=== PATIENT | male | born 1930 | race Caucasian/White ===

== ENCOUNTER 2016-12-25 16:05 | Inpatient (IN) | payer MEDICARE, BC, MEDICAID ==
[~2016-12-25] VITALS: Ht 170.2 cm; Wt 92.5 kg
[~2016-12-25 16:05] MED LIST: ALAVERT10 M1 PO; ALLEGRA 180MG180 MG PO; ASPIRIN 32325 MG/TAB PO; CARDIZEM CD 24240 MG PO; FLOMAX 0.40.4 MG/CAP PO; HYTRIN10 MG PO; LIPITOR 80MG80 MG PO; LOPRESSOR 550 MG/TAB PO; NITROSTAT0.4 MG/TAB SL; PLAVIX 75MG TAB75 MG PO; PRILOSEC 20MG20 MG PO; PRINIVIL20 MG PO; PROTONIX20 MG PO; TYLENOL EXTRA500 M1 PO
[2016-12-25 16:49] LABS: INR 1.4 (0.8-3.0); PROTHROMBIN TIME 15.1 SECONDS (9.7-12.8)
[2016-12-25 16:54] LABS: ADJUSTED CALCIUM 9.5 mg/dL (8.4-10.2); ALANINE AMINOTRANSFERASE 52 U/L (21-72); ALKALINE PHOSPHATASE 90 U/L (50-136); ANION GAP 11 mmol/L (7-16); BILIRUBIN,TOTAL 1.3 mg/dL (0.0-1.0); BLOOD UREA NITROGEN 26 mg/dL (9-20); CALCIUM 8.7 mg/dL (8.4-10.2); CARBON DIOXIDE 26 mmol/L (22-30); CHLORIDE 101 mmol/L (98-107); CREATININE, serum 1.13 mg/dL (0.66-1.25); GLUCOSE 107 mg/dL (74-106); SODIUM 137 mmol/L (137-145); TOTAL PROTEIN 5.9 gm/dL (6.4-8.2)
[2016-12-25] MEDS ORDERED: ASPIRIN 81M81 MG/TA2 PO (17:01)
[2016-12-25 17:02] LABS: B-TYPE NATRIURETIC PEPTIDE 462 pg/mL (0-450)
[2016-12-25] MEDS ORDERED: MELATONIN5 M1 SL (17:03)
[2016-12-25] MEDS ORDERED: CELEXA 20MG20 MG/TAB PO (17:03)
[2016-12-25] MEDS ORDERED: ZANTAC 150150 MG PO (17:04)
[2016-12-25] MEDS ORDERED: COLACE 100100 MG/CAP PO (17:04)
[2016-12-25] MEDS ORDERED: IMODIUM 2MG CAPS2 MG PO (17:05)
[2016-12-25] MEDS ORDERED: ZOCOR 40MG40 MG PO (17:06)
[2016-12-25] MEDS ORDERED: PLAVIX 75MG TAB75 MG PO (17:07)
[2016-12-25 17:08] LABS: MEAN CELL VOLUME 95 fl (80.0-100.0); MEAN CORPUSCULAR HGB CONC 35 g/dl (33.0-37.0); MEAN PLATELET VOLUME 10.4 fl (7.4-10.4); PLATELET COUNT 107 K/mm3 (130-400); RED BLOOD COUNT 3.12 M/mm3 (4.20-5.60); REDCELL DISTRIBUTION WIDTH-CV 16.9 % (11.5-14.5)
[2016-12-25] MEDS ORDERED: TYLENOL SU650 MG/SUP RC (17:08)
[2016-12-25] MEDS ORDERED: TYLENOL 325MG325 MG PO (17:08)
[2016-12-25] MEDS ORDERED: GENTLE LAXATIVE10 MG RC (17:09)
[2016-12-25 17:12] LABS: TROPONIN-I < 0.012 ng/mL (0.000-0.034)
[2016-12-25 17:14] LABS: ADD PATHOLOGY DIFF REVIEW NO; HEMATOCRIT 29.6 % (42.0-52.0); HEMOGLOBIN 10.3 g/dl (13.5-18.0); MEAN CORPUSCULAR HEMOGLOBIN 33 pg (27.0-31.0)
[2016-12-25 17:21] LABS: BAND 6 % (0-10); BASOPHIL 1 % (0-2); EOSINOPHIL 2 % (0-4); NEUTROPHILS 55 % (42.0-75.2); TOTAL CELLS COUNTED 100
[2016-12-25 17:22] LABS: HYPOCHROMIA 1+; MICROCYTOSIS 1+; POLYCHROMASIA 2+
[2016-12-25 18:52] LABS: INFLUENZA B NEGATIVE
[2016-12-25 21:31] VITALS: BP 114/51; PULSE 95; TEMP 97.8
[2016-12-26 02:51] VITALS: BP 129/59; PULSE 103; TEMP 98.4
[2016-12-26 08:17] VITALS: BP 126/64; PULSE 114; TEMP 97.7
[2016-12-26 12:10] VITALS: BP 115/41; PULSE 89; TEMP 97.8
[2016-12-26 16:19] VITALS: BP 136/63; PULSE 100; TEMP 97.9
[2016-12-26 19:55] VITALS: BP 146/55; PULSE 115; TEMP 98.7
[2016-12-27 07:55] VITALS: BP 143/57; PULSE 98; TEMP 98.2
[2016-12-27 08:05] LABS: CALCIUM 8.5 mg/dL (8.4-10.2); CREATININE, serum 1.06 mg/dL (0.66-1.25); POTASSIUM 3.6 mmol/L (3.4-5.0)
[2016-12-27 09:19] LABS: HEMATOCRIT 39.3 % (42.0-52.0); MEAN CELL VOLUME 97 fl (80.0-100.0); MEAN CORPUSCULAR HGB CONC 36 g/dl (33.0-37.0); MEAN PLATELET VOLUME 10.1 fl (7.4-10.4); RED BLOOD COUNT 4.04 M/mm3 (4.20-5.60); REDCELL DISTRIBUTION WIDTH-CV 19.9 % (11.5-14.5); WHITE BLOOD COUNT 3.7 K/mm3 (4.8-10.8)
[2016-12-27 09:20] LABS: HEMOGLOBIN 14.3 g/dl (13.5-18.0); MEAN CORPUSCULAR HEMOGLOBIN 35 pg (27.0-31.0); PLATELET COUNT 91 K/mm3 (130-400)
[2016-12-27 09:21] LABS: ADD PATHOLOGY DIFF REVIEW NO
[2016-12-27 10:10] LABS: BAND 12 % (0-10); BASOPHIL 2 % (0-2); EOSINOPHIL 1 % (0-4); METAMYELOCYTE 2 % (0-0); MYELOCYTE 1 % (0-0); NEUTROPHILS 51 % (42.0-75.2); TOTAL CELLS COUNTED 100
[2016-12-27 11:46] VITALS: BP 122/48; PULSE 80; TEMP 98
[2016-12-27 15:46] VITALS: BP 134/65; PULSE 86; TEMP 97.9
[2016-12-27 20:58] VITALS: BP 152/93; PULSE 105; TEMP 98
[2016-12-28] VITALS (8 sets, daily range): BP systolic 112–150; BP diastolic 50–72; PULSE 68–95; TEMP 97.6–98.9
[2016-12-28 07:28] LABS: CALCIUM 8.6 mg/dL (8.4-10.2); CREATININE, serum 0.92 mg/dL (0.66-1.25); POTASSIUM 3.3 mmol/L (3.4-5.0)
[2016-12-28 08:08] LABS: MEAN CORPUSCULAR HGB CONC 32 g/dl (33.0-37.0); MEAN PLATELET VOLUME 9.8 fl (7.4-10.4); PLATELET COUNT 85 K/mm3 (130-400); RED BLOOD COUNT 3.07 M/mm3 (4.20-5.60); REDCELL DISTRIBUTION WIDTH-CV 16.5 % (11.5-14.5); WHITE BLOOD COUNT 5.6 K/mm3 (4.8-10.8)
[2016-12-28 08:12] LABS: HEMATOCRIT 28.3 % (42.0-52.0); MEAN CELL VOLUME 92 fl (80.0-100.0); MEAN CORPUSCULAR HEMOGLOBIN 29 pg (27.0-31.0)
[2016-12-28 08:44] LABS: MEAN CELL VOLUME 93 fl (80.0-100.0); MEAN CORPUSCULAR HGB CONC 32 g/dl (33.0-37.0); MEAN PLATELET VOLUME 10.4 fl (7.4-10.4); PLATELET COUNT 88 K/mm3 (130-400); RED BLOOD COUNT 3.17 M/mm3 (4.20-5.60); REDCELL DISTRIBUTION WIDTH-CV 16.3 % (11.5-14.5); WHITE BLOOD COUNT 5.6 K/mm3 (4.8-10.8)
[2016-12-28 08:45] LABS: HEMATOCRIT 29.6 % (42.0-52.0); MEAN CORPUSCULAR HEMOGLOBIN 30 pg (27.0-31.0)
[2016-12-28 08:46] LABS: HEMOGLOBIN 9.4 g/dl (13.5-18.0)
[2016-12-28 08:47] LABS: ADD PATHOLOGY DIFF REVIEW NO
[2016-12-28 12:20] LABS: BAND 10 % (0-10); EOSINOPHIL 1 % (0-4); METAMYELOCYTE 1 % (0-0); NEUTROPHILS 52 % (42.0-75.2); PLATELET ESTIMATE DECREASED (NORMAL); TOTAL CELLS COUNTED 100
[2016-12-28 12:27] LABS: ANISOCYTOSIS 1+
[2016-12-28 12:28] LABS: POLYCHROMASIA 2+
[2016-12-28 12:29] LABS: BURR CELLS 1+
[2016-12-29] VITALS (8 sets, daily range): BP systolic 108–153; BP diastolic 40–69; PULSE 105–118; TEMP 97.4–99.2
[2016-12-29 07:31] LABS: MEAN CORPUSCULAR HGB CONC 44 g/dl (33.0-37.0); MEAN PLATELET VOLUME 10.6 fl (7.4-10.4); PLATELET COUNT 84 K/mm3 (130-400); REDCELL DISTRIBUTION WIDTH-CV 19.5 % (11.5-14.5); WHITE BLOOD COUNT 4.8 K/mm3 (4.8-10.8)
[2016-12-29 07:38] LABS: ADD PATHOLOGY DIFF REVIEW NO; HEMATOCRIT 19.2 % (42.0-52.0); HEMOGLOBIN 8.5 g/dl (13.5-18.0); MEAN CELL VOLUME 101 fl (80.0-100.0); MEAN CORPUSCULAR HEMOGLOBIN 45 pg (27.0-31.0)
[2016-12-29 07:39] LABS: CALCIUM 8.6 mg/dL (8.4-10.2); CREATININE, serum 1.02 mg/dL (0.66-1.25)
[2016-12-29 07:54] LABS: URIC ACID 4.7 mg/dL (3.5-8.5)
[2016-12-29 08:53] LABS: BAND 20 % (0-10); EOSINOPHIL 2 % (0-4); METAMYELOCYTE 4 % (0-0); NEUTROPHILS 40 % (42.0-75.2); TOTAL CELLS COUNTED 100
[2016-12-29 08:55] LABS: PLATELET ESTIMATE DECREASED (NORMAL)
[2016-12-29 08:56] LABS: ANISOCYTOSIS 1+
[2016-12-30 03:56] VITALS: BP 151/63; PULSE 80; TEMP 97.2
[2016-12-30 08:15] LABS: CALCIUM 8.8 mg/dL (8.4-10.2); CREATININE, serum 0.94 mg/dL (0.66-1.25); POTASSIUM 3.9 mmol/L (3.4-5.0)
[2016-12-30 08:46] VITALS: BP 137/74; PULSE 120; TEMP 97.6
[2016-12-30 10:37] LABS: MEAN CELL VOLUME 100 fl (80.0-100.0); MEAN CORPUSCULAR HGB CONC 38 g/dl (33.0-37.0); MEAN PLATELET VOLUME 10.2 fl (7.4-10.4); PLATELET COUNT 88 K/mm3 (130-400); RED BLOOD COUNT 2.29 M/mm3 (4.20-5.60); REDCELL DISTRIBUTION WIDTH-CV 18.4 % (11.5-14.5); WHITE BLOOD COUNT 5.2 K/mm3 (4.8-10.8)
[2016-12-30 10:38] LABS: HEMATOCRIT 22.8 % (42.0-52.0); HEMOGLOBIN 8.7 g/dl (13.5-18.0); MEAN CORPUSCULAR HEMOGLOBIN 38 pg (27.0-31.0)
[2016-12-30 10:40] LABS: ADD PATHOLOGY DIFF REVIEW NO
[2016-12-30 11:15] VITALS: BP 137/75; PULSE 106; TEMP 97.6
[2016-12-30 14:16] LABS: BAND 16 % (0-10); BASOPHIL 1 % (0-2); EOSINOPHIL 4 % (0-4); METAMYELOCYTE 1 % (0-0); MYELOCYTE 2 % (0-0); NEUTROPHILS 48 % (42.0-75.2); TOTAL CELLS COUNTED 100
[2016-12-30 14:17] LABS: PLATELET ESTIMATE DECREASED (NORMAL)
[2016-12-30 14:21] LABS: ROULEAUX 2+
[2016-12-30 14:26] LABS: POLYCHROMASIA 1+
[2016-12-30 14:27] LABS: ANISOCYTOSIS 2+
[2016-12-30 15:58] VITALS: BP 137/75; PULSE 106; TEMP 97.6
[2016-12-30] MEDS ORDERED: AMOXICILLIN 8751 TAB PO (16:10)
[2016-12-30] MEDS ORDERED: IPRATROPIUM BROM3 M1 IH (16:11)
== END 2016-12-30 16:30 | DRG 987 ==
LOC: COL.ER 16:05 → MEDICAL 19:24
PROVIDERS: Emergency Medicine; Family Medicine; Internal Medicine; Nurse Practitioner Family; Physician Assistant
PROC: 07953ZX Drainage of Right Axillary Lymphatic, Percutaneous Approach, Diagnostic (ICD-10-PCS; principal; 2016-12-28)
DX: J18.9 Pneumonia, unspecified organism (principal); J96.01 Acute respiratory failure with hypoxia; E44.0 Moderate protein-calorie malnutrition; C83.34 Diffuse large B-cell lymphoma, lymph nodes of axilla and upper limb; D61.818 Other pancytopenia; Z66 Do not resuscitate; I10 Essential (primary) hypertension; I25.10 Atherosclerotic heart disease of native coronary artery without angina pectoris; Z95.5 Presence of coronary angioplasty implant and graft; G30.9 Alzheimer's disease, unspecified; F02.80 Dementia in other diseases classified elsewhere, unspecified severity, without behavioral disturbance, psychotic disturbance, mood disturbance, and anxiety; D69.6 Thrombocytopenia, unspecified; E87.6 Hypokalemia; N40.1 Benign prostatic hyperplasia with lower urinary tract symptoms; R33.8 Other retention of urine
CPT/HCPCS: 99222-AI; 99232-AI; 99233-AI; 99239; A4315; J1956; J2543; J3370; J7030; J7050; Q9967